=== PATIENT | male | born 1995 | race Caucasian/White ===

== ENCOUNTER 2017-10-07 16:14 | Emergency (ER) | payer OTHER ==
[~2017-10-07] VITALS: Ht 172.7 cm; Wt 179.4 kg
[2017-10-07 16:24] VITALS: BP 152/79
--- NOTE | 2017-10-07 16:31 | NUR ---
PT AMBULATED TO BED 1.
--- NOTE | 2017-10-07 17:02 | NUR ---
22M BIB SELF C/O HEMATURIA, LOWER ABDOMINAL PAIN WITH URINATION, DYSURIA X LAST NIGHT. ABD SOFT, LARGE, NON TENDER. DENIES FEVERS/CHILLS. HX: PT DENIES
[2017-10-07 17:23] LABS: APPEARANCE,URINE SL CLOUDY (CLEAR); BILIRUBIN,URINE 1+ (NEGATIVE); BLOOD, URINE 3+ (NEGATIVE); COLOR,URINE BROWN (YELLOW); LEUKOCYTE ESTERASE ,URINE TRACE (NEGATIVE); NITRITE, URINE POSITIVE (NEGATIVE); UGLUCOSE NEGATIVE (NEGATIVE)
[2017-10-07 17:44] LABS: RBC,URINE TOO NUMEROUS TO COUN /HPF (0-5); WBC,URINE 20-60 /HPF (0-5)
[2017-10-07 18:00] VITALS: BP 141/80
--- NOTE | 2017-10-07 18:02 | NUR ---
Patient discharged with v/s stable. Written and verbal after care instructions given and explained. Patient alert, oriented and verbalized understanding of instructions. Ambulatory with steady gait. All questions addressed prior to discharge. ID band removed. Patient advised to follow up with PMD. Rx of PHENAZOPYRIDINE given. Patient educated on indication of medication including possible reaction and side effects. Opportunity to ask questions provided and answered.
--- NOTE | 2017-10-09 13:17 | NUR ---
PER URINE CULTURE, PT POSITIVE FOR ESCHERICHIA COLI; PT GIVEN RX FOR CIPRO 250MG AT DISCHARGE BY ER MD DR. MEJIA; PER ER MD DR REYNOLDS, NO FURTHER RX NEEDED AT THIS TIME.
== END 2017-10-07 18:00 | disposition home or self-care (01) ==
LOC: MED 16:14
DX: N30.01 Acute cystitis with hematuria (principal); N20.0 Calculus of kidney; Z88.0 Allergy status to penicillin; Z88.1 Allergy status to other antibiotic agents
CPT/HCPCS: 81001; 87086; 87186; 99284

== ENCOUNTER 2021-06-19 16:55 | Emergency (ER) | payer BC, OTHER ==
[~2021-06-19] VITALS: Ht 172.7 cm; Wt 222.7 kg
[2021-06-19 17:15] VITALS: BP_SYST 152; BP_DIAS 19; BP_DIAS 91
--- NOTE | 2021-06-19 18:00 | NUR ---
PT AMBULATED TO ROOM 12
--- NOTE | 2021-06-19 18:07 | NUR ---
RICK FLORES BEDSIDE EVALUATING PT
[2021-06-19 18:09] LABS: APPEARANCE,URINE CLEAR (CLEAR); BILIRUBIN,URINE NEGATIVE (NEGATIVE); BLOOD, URINE TRACE-I (NEGATIVE); COLOR,URINE YELLOW (YELLOW); LEUKOCYTE ESTERASE ,URINE NEGATIVE (NEGATIVE); NITRITE, URINE NEGATIVE (NEGATIVE); UGLUCOSE NEGATIVE (NEGATIVE)
--- NOTE | 2021-06-19 18:29 | NUR ---
25 YO M C/O URINARY FREQUENCY X 2 WEEKS. ALSO WITH BURNING SENSATION UPON URINATION WHICH HE DENIES TO BE PAIN. DENIES HEMATURIA. DENIES HX OF UTI. PT STATED HE HAS ALSO HAD A FOUL ODOR X2 WEEKS. DENIES ANY ULCERS/WOUNDS ON HER PENIS AT THIS TIME PMH: ANXIETY, DEPRESSION MEDS: CELEXA, XANAX ALLERGIES: PENICILLIN, AMOXICILLIN
--- NOTE | 2021-06-19 18:32 | NUR ---
Female [employer] accompanied MALE patient for LISS AREA Exam.
--- NOTE | 2021-06-19 18:42 | NUR ---
Patient discharged with v/s stable. Written and verbal after care instructions given and explained. Patient verbalized understanding. Ambulatory with steady gait. All questions addressed prior to discharge. Advised to follow up with PMD.
== END 2021-06-19 18:41 | disposition home or self-care (01) ==
LOC: MED 16:55
DX: R30.0 Dysuria (principal); R30.9 Painful micturition, unspecified; F12.90 Cannabis use, unspecified, uncomplicated; Z88.0 Allergy status to penicillin; Z88.1 Allergy status to other antibiotic agents
CPT/HCPCS: 81003; 99283

== ENCOUNTER 2022-03-23 23:20 | Emergency (ER) | payer BC ==
[~2022-03-23] VITALS: Ht 172.7 cm; Wt 244.9 kg
[2022-03-23 23:48] VITALS: BP 148/90
--- NOTE | 2022-03-23 23:51 | NUR ---
TO LOBBY A/W BED AMBULATORY
[2022-03-24 00:50] LABS: APPEARANCE,URINE CLOUDY (CLEAR); BILIRUBIN,URINE NEGATIVE (NEGATIVE); BLOOD, URINE 3+ (NEGATIVE); COLOR,URINE RED (YELLOW); LEUKOCYTE ESTERASE ,URINE 1+ (NEGATIVE); NITRITE, URINE POSITIVE (NEGATIVE); UGLUCOSE TRACE (NEGATIVE)
[2022-03-24 01:07] LABS: RBC,URINE >100 /HPF (0-5); WBC,URINE 60-80 /HPF (0-5); YEAST,URINE Few /HPF (None Seen)
--- NOTE | 2022-03-24 01:15 | NUR ---
SEEN AND EXAMINED BY IAN
[2022-03-24] MEDS ORDERED: TRAM50TA1 PO (01:34)
[2022-03-24] MEDS ORDERED: CIPR500T4 PO (01:34)
[2022-03-24 02:54] VITALS: BP 148/90
--- NOTE | 2022-03-24 02:54 | NUR ---
Patient discharged with v/s stable. Written and verbal after care instructions given and explained. Patient alert, oriented and verbalized understanding of instructions. Ambulatory with to car. All questions addressed prior to discharge. ID band removed. Patient advised to follow up with PMD. Rx of CIPRO AND ULTRAM given. Opportunity to ask questions provided and answered.
== END 2022-03-24 02:54 | disposition home or self-care (01) ==
LOC: MED 23:20
DX: N39.0 Urinary tract infection, site not specified (principal); R31.9 Hematuria, unspecified; Z79.891 Long term (current) use of opiate analgesic; Z79.2 Long term (current) use of antibiotics; Z88.0 Allergy status to penicillin
CPT/HCPCS: 81001; 87086; 87491; 99283

== ENCOUNTER 2022-12-17 19:40 | Emergency (ER) | payer BC, OTHER ==
[~2022-12-17] VITALS: Ht 172.7 cm; Wt 217.7 kg
[~2022-12-17 19:40] MED LIST: CIPR500T4 PO; TRAM-748 PO
[2022-12-17 19:45] VITALS: BP 180/97
--- NOTE | 2022-12-17 19:48 | NUR ---
TO LOBBY A/W BED AMBULATORY
--- NOTE | 2022-12-17 21:01 | NUR ---
PATIENT LEFT WITHOUT BEING SEEN BY DR. ROCKWELL. NO FURTHER CARE PROVIDED FOR PATIENT.
--- NOTE | 2022-12-17 21:01 | NUR ---
PT CALLED FROM INSIDE LOBBY AND OUTSIDE, NO RESPONSE
--- NOTE | 2022-12-17 21:10 | NUR ---
CALLED FOR THE SECOND TIME NO RESPONSE
--- NOTE | 2022-12-17 21:15 | NUR ---
CALLED FOR THE THIRD TIME NO RESPONSE
== END 2022-12-17 21:01 | disposition left against medical advice (07) ==
LOC: MED 19:40
DX: R00.2 Palpitations (principal); Z53.21 Procedure and treatment not carried out due to patient leaving prior to being seen by health care provider
CPT/HCPCS: 99281

== ENCOUNTER 2024-01-23 10:51 | Emergency (ER) | payer OTHER ==
[~2024-01-23] VITALS: Ht 172.7 cm; Wt 159.7 kg
[2024-01-23 11:01] VITALS: BP 141/65; PULSE 69; RESP 16; TEMP 98.9; O2SAT 97
[2024-01-23] MEDS ORDERED: NITR100C7 PO (11:31)
[2024-01-23 11:51] LABS: APPEARANCE,URINE CLEAR (CLEAR); BILIRUBIN,URINE NEGATIVE (NEGATIVE); BLOOD, URINE NEGATIVE (NEGATIVE); COLOR,URINE YELLOW (YELLOW); LEUKOCYTE ESTERASE ,URINE NEGATIVE (NEGATIVE); NITRITE, URINE NEGATIVE (NEGATIVE); PROTEIN,URINE NEGATIVE (NEGATIVE); UGLUCOSE NEGATIVE (NEGATIVE); UROBILINOGEN,URINE 0.2 EU/dL (0.2 - 1)
== END 2024-01-23 11:34 | disposition home or self-care (01) ==
LOC: MED 10:51
DX: R30.0 Dysuria (principal); Z79.899 Other long term (current) drug therapy; Z88.0 Allergy status to penicillin
CPT/HCPCS: 81003; 87086; 99283